=== PATIENT | male | born 1945 | race Caucasian/White ===

== ENCOUNTER 2016-10-02 02:39 | Emergency (ER) | payer MEDICARE ==
[~2016-10-02] VITALS: Ht 170.2 cm; Wt 90.7 kg
[2016-10-02 03:51] VITALS: BP 183/83
[2016-10-02] MEDS ORDERED: KETOROLAC TROMETH 60MG/2ML VIAL IM ONE (04:30)
[2016-10-02] MEDS ORDERED: CYCLOBENZAPRINE HCL 10 MG TAB PO ONE (04:45)
== END 2016-10-02 04:37 | disposition home or self-care (01) ==
LOC: ER 02:42
DX: S33.5XXA Sprain of ligaments of lumbar spine, initial encounter (principal); M79.1 Myalgia; X58.XXXA Exposure to other specified factors, initial encounter; Y93.89 Activity, other specified; Y99.8 Other external cause status; Y92.89 Other specified places as the place of occurrence of the external cause
CPT/HCPCS: 93005

== ENCOUNTER 2024-03-06 09:18 | Emergency (ER) | payer OTHER, MEDICAID ==
[~2024-03-06] VITALS: Ht 170.2 cm; Wt 90.5 kg
[2024-03-06 10:26] VITALS: BP 118/70; PULSE 103; RESP 16; TEMP 97.3; O2SAT 99
[2024-03-06] MEDS: ACETAMINOPHEN 500 MG TAB PO ONE (11:08)
== END 2024-03-06 11:53 | disposition home or self-care (01) ==
LOC: ER 09:18
DX: S01.01XA Laceration without foreign body of scalp, initial encounter (principal); W18.09XA Striking against other object with subsequent fall, initial encounter; Y93.89 Activity, other specified; Y92.89 Other specified places as the place of occurrence of the external cause; Y99.8 Other external cause status
CPT/HCPCS: 12002; 70450